=== PATIENT | female | born 1940 | race Two or more races ===

== ENCOUNTER 2021-04-27 20:03 | Emergency (ER) | payer OTHER ==
[~2021-04-27] VITALS: Ht 157.5 cm; Wt 66.2 kg
[2021-04-27] MEDS ORDERED: METOPROLOL SUCC50 MG PO (20:11)
[2021-04-27] MEDS ORDERED: DICLOFENAC POTA50 MG PO (20:11)
[2021-04-27] MEDS ORDERED: ALPRAZOLAM0.5 MG PO (20:11)
[2021-04-27] MEDS ORDERED: FENOFIBRATE145 MG PO (20:11)
[2021-04-27] MEDS ORDERED: AMLODIPINE BESYL5 MG PO (20:11)
[2021-04-27] MEDS ORDERED: SERTRALINE HCL50 MG PO (20:12)
== END 2021-04-27 22:38 | disposition home or self-care (01) ==
LOC: ER 20:03
DX: S00.12XA Contusion of left eyelid and periocular area, initial encounter (principal); S00.531A Contusion of lip, initial encounter; W22.8XXA Striking against or struck by other objects, initial encounter; Y93.89 Activity, other specified; Y92.018 Other place in single-family (private) house as the place of occurrence of the external cause; Y99.8 Other external cause status

== ENCOUNTER 2024-05-03 14:23 | Outpatient (CLI) | payer OTHER ==
[~2024-05-03 14:23] MED LIST: ALPRAZOLAM0.5 MG PO; AMLODIPINE BESYL5 MG PO; DICLOFENAC POTA50 MG PO; FENOFIBRATE145 MG PO; METOPROLOL SUCC50 MG PO; SERTRALINE HCL50 MG PO
== END 2024-05-03 14:27 | disposition home or self-care (01) ==
LOC: RAD 14:23
PROVIDERS: ATTEND Orthopaedic Surgery Foot and Ankle Surgery
DX: S32.029S Unspecified fracture of second lumbar vertebra, sequela (principal)